=== PATIENT | female | born 1995 | race Caucasian/White ===

== ENCOUNTER 2021-11-03 10:56 | Emergency (ER) | payer OTHER, SELFPAY ==
[2021-11-03 11:06] VITALS: BP 141/96; PULSE 93; RESP 14; TEMP 37; O2SAT 100
--- NOTE | 2021-11-03 11:26 | ED.SKABFB ---
HPI - Skin/Abscess/Foreign Bdy General Chief complaint: Skin/Abscess/Foreign Body Stated complaint: Rash Time Seen by Provider: 11/03/21 11:00 Source: patient Mode of arrival: ambulatory Limitations: no limitations History of Present Illness HPI narrative: 26-year-old female presents to [facility] with complaints of rash to her chest, abdomen and moving down to her groin region for the past 3 days. Patient reports that she did have cold symptoms approximate 1 week ago. Patient denies new medications, new soaps or new detergents. Patient denies fever, bites, chills, nausea, vomiting or diarrhea. Patient denies itching MD complaint: rash Onset (ago): day(s) (3) Location: chest Relieving factors: none Exacerbating factors: none Context: none Treatments prior to arrival: none Related Data Home Medications Medication Instructions Recorded Confirmed atenolol 50 mg PO EVERY OTHER DAY 11/03/21 11/03/21 insulin glargine [Lantus U-100 24 unit SUBCUT DAILY 11/03/21 11/03/21 Insulin] insulin lispro protamin-lispro 20 unit SUBCUT TID 11/03/21 11/03/21 [Humalog Mix 50-50 KwikPen] Allergies Allergy/AdvReac Type Severity Reaction Status Date / Time cefprozil Allergy Unknown Rash Verified 11/03/21 11:17 Review of Systems Constitutional: Constitutional: Denies chills, Denies fever(s) and Denies weakness ENT: Denies dizziness Cardiovascular: Cardiovascular: Denies chest pain, Denies rapid heart rate, Denies radiating jaw, neck or arm pain and Denies slow heart rate Respiratory: Respiratory: Denies cough Gastrointestinal: Gastrointestinal: Denies abdominal pain, Denies constipation, Denies diarrhea, Denies nausea and Denies vomiting Integumentary/Breasts: Skin/Breast: Reports rash PMFSH Past Medical History Medical History (Updated 11/03/21 @ 11:36 by Olivia Arroyo APRN) Diabetes Hernia Family History Family History (Updated 11/03/21 @ 11:29 by Olivia Arroyo APRN) Mother Lupus Social History Social History (Updated 11/03/21 @ 11:29 by Olivia Arroyo APRN) Tobacco type: e-cigarettes/vaping Comments At time of signature, I agree with nursing past medical, surgical, social and family history. There is no relevant family history pertinent to the presenting complaint. Exam Const: General: healthy appearing and no acute distress Orientation/consciousness: patient oriented x3 Neck: Neck: normal visual inspection Resp: Effort & Inspection: normal respiratory effort Auscultation: clear to auscultation bilaterally Cardio: Rate: regular rate Rhythm: regular rhythm Skin: General skin exam: normal color Wounds: no wounds Other: Sporadic flesh-colored scaly papules noted to chest, abdomen and moving to groin region. Rash appears to be pityriasis rosea. There is no bruising, bleeding, open wounds or signs of infection noted Neuro: General: patient oriented x3 and moves all extremities Psych: Appearance: grossly normal Mental Status: mental status grossly normal Affect: normal affect Attitude: cooperative Thought content: Yes Normal thought content present Course Vital Signs Vital signs: Vital Signs Temperature 37.0 C 11/03/21 11:06 Pulse Rate 93 11/03/21 11:06 Respiratory Rate 14 11/03/21 11:06 Blood Pressure 141/96 H 11/03/21 11:06 Pulse Oximetry 100 11/03/21 11:06 Temperature 37.0 C 11/03/21 11:06 Pulse Rate 93 11/03/21 11:06 Respiratory Rate 14 11/03/21 11:06 Blood Pressure 141/96 H 11/03/21 11:06 Pulse Oximetry 100 11/03/21 11:06 MDM - Skin/Abscess/Foreign Bdy MDM Narrative Medical decision making narrative: Discussed pityriasis rosea with patient. She understands that rash is self-limiting . Pt agrees to take Benadryl PRN itching. Pt agrees to f/u with PCP if rash does not resolve. Patient agrees to proceed to ER if symptoms Differential Diagnosis Differential diagnosis: Likely abscess of skin or subcutaneous tissue, viral exanthem and urt
== END 2021-11-03 11:40 | disposition home or self-care (01) ==
PROVIDERS: Emergency Provider Nurse Practitioner Family
DX: L42 Pityriasis rosea (principal); E11.9 Type 2 diabetes mellitus without complications; F17.290 Nicotine dependence, other tobacco product, uncomplicated
CPT/HCPCS: 99211; G0463

== ENCOUNTER 2022-07-30 08:09 | Emergency (ER) | payer OTHER, SELFPAY ==
[2022-07-30 08:18] VITALS: BP 144/92; PULSE 90; RESP 20; TEMP 36.9; O2SAT 99
--- NOTE | 2022-07-30 08:25 | ED.GENADULT ---
HPI - General Adult General Chief complaint: Recheck/Abnormal Lab/Rx Stated complaint: blood sugar Time Seen by Provider: 07/30/22 08:25 Source: patient Mode of arrival: ambulatory Limitations: no limitations History of Present Illness HPI narrative: 27y/o female with history of Diabetes presented for concern for UTI due to spiking blood sugar in the night. Denies urinary symptoms, abdominal pain, polyuria, polydipsia, n/v/d/f/c. States the last time her blood sugar levels spiked it was due to UTI, and was asymptomatic at that time. Wears insulin pump and says glucometer reading this morning 230. States pump has delivered multiple doses to maintain glucose. Scheduled with search manager in 3 weeks. Also reports itchy rash behind ears and in scalp for 4 weeks. She went to the lice clinic in [facility] for evaluation and has changed shampoo. Denies draining lesions. Related Data Home Medications Medication Instructions Recorded Confirmed insulin glargine 100 unit/mL 24 unit subcut DAILY 11/03/21 07/30/22 subcutaneous solution (Lantus U-100 Insulin) insulin lispro protamine-lispro 20 unit subcut TID 11/03/21 07/30/22 100 unit/mL (50-50) subcutaneous pen (Humalog Mix 50-50 KwikPen) Allergies Allergy/AdvReac Type Severity Reaction Status Date / Time cefprozil Allergy Unknown Rash Verified 07/30/22 08:21 Review of Systems Review of Systems: CONSTITUTIONAL: Denies body aches, fever, chills, or sweats. CARDIOVASCULAR: Denies chest pain, palpitations, or edema. RESPIRATORY: Denies cough or dyspnea. GASTROINTESTINAL: Denies abdominal pain, nausea, vomiting, or diarrhea. GENITOURINARY: Denies dysuria or hematuria. SKIN: reports rash, itching, or wounds. MUSCULOSKELETAL: Denies back pain, joint pain, or myalgia. NEUROLOGIC: Denies headache, numbness, tingling, or weakness. All systems reviewed & are unremarkable except as noted in HPI and below PMFSH Past Medical History Medical History Diabetes Hernia Family History Family History Mother Lupus Social History Social History Tobacco type: e-cigarettes/vaping Comments At time of signature, I have reviewed and agree with nursing past medical, surgical, social and family history unless otherwise noted. Please see nursing chart for further information. There is no relevant family history pertinent to the presenting complaint Exam Narrative: GENERAL: Well-appearing EYES: EOMI. No redness or drainage. Conjunctivae normal. ENT: Mucous membranes pink and moist. CHEST: Clear to auscultation. HEART: Regular rate and rhythm. SKIN: Warm, dry, no rash noted behind ears or scalp, no apparent cause for itching. Capillary refill normal. Normal skin turgor. NEURO: Alert and oriented x3. PSYCH: Normal affect. Course Course Emergency Course: Patient is aware of diagnosis, understands and agrees to treatment plan. Anticipatory guidance given. Patient agrees to follow-up as directed and is aware of reasons to seek care at the emergency department. Portions of this record may have been created with voice recognition software Level of Care: Express Care Visit Vital Signs Vital signs: Vital Signs Temperature 98.4 F 07/30/22 08:18 Pulse Rate 90 07/30/22 08:18 Respiratory Rate 20 07/30/22 08:18 Blood Pressure 144/92 H 07/30/22 08:18 Pulse Oximetry 99 07/30/22 08:18 Oxygen Delivery Room Air 07/30/22 08:18 Temperature 98.4 F 07/30/22 08:18 Pulse Rate 90 07/30/22 08:18 Respiratory Rate 20 07/30/22 08:18 Blood Pressure 144/92 H 07/30/22 08:18 Pulse Oximetry 99 07/30/22 08:18 Oxygen Delivery Room Air 07/30/22 08:18 Medical Decision Making MDM Narrative Medical decision making narrative: Results of urine reviewed with pt. Will send for culture.
== END 2022-07-30 08:45 | disposition home or self-care (01) ==
PROVIDERS: Emergency Provider Nurse Practitioner Family
DX: E11.65 Type 2 diabetes mellitus with hyperglycemia (principal); Z79.4 Long term (current) use of insulin; Z96.41 Presence of insulin pump (external) (internal); F17.290 Nicotine dependence, other tobacco product, uncomplicated
CPT/HCPCS: 81003; 87086; 87147; 87181; 87186; 99213; G0463

== ENCOUNTER 2022-09-16 11:06 | Emergency (ER) | payer OTHER, SELFPAY ==
--- NOTE | 2022-09-16 11:09 | ED.FEMALEGU ---
HPI - Female Genitourinary General Chief complaint: Urogenital-Female Stated complaint: poss uti Time Seen by Provider: 09/16/22 11:09 Source: patient and RN notes reviewed History of Present Illness HPI Narrative: Patient is a 27-year-old female who presents to urgent care with complaints of possible UTI due to elevated blood sugar last night. Patient states that her blood sugars have have been normal today and running approximately 90. Patient states that the last time she had elevated blood sugars and treat her UTI and worse evening. Patient denies any nausea, vomiting, urinary frequency, urgency or pain with urination. Denies any recent fevers. No other acute complaints. No acute distress noted. Patient aware of the plan of care. Some parts of this dictation were generated by voice recognition software and may contain typographical and/or grammatical inaccuracies. Related Data Home Medications Medication Instructions Recorded Confirmed insulin glargine 100 unit/mL 24 unit subcut DAILY 11/03/21 09/16/22 subcutaneous solution (Lantus U-100 Insulin) insulin lispro protamine-lispro 20 unit subcut TID 11/03/21 09/16/22 100 unit/mL (50-50) subcutaneous pen (Humalog Mix 50-50 KwikPen) elderberry fruit 200 mg capsule mg PO 09/16/22 magnesium carbonate 09/16/22 [id number] 1 mg tablet PO 09/16/22 tablet Allergies Allergy/AdvReac Type Severity Reaction Status Date / Time cefprozil Allergy Unknown Rash Verified 09/16/22 11:16 Review of Systems Review of Systems: CONSTITUTIONAL: Denies fever, chills, or sweats. EYES: Denies visual changes, redness, or discharge. ENT: Denies rhinorrhea, congestion, sore throat, or otalgia. CARDIOVASCULAR: Denies chest pain, palpitations, or edema. RESPIRATORY: Denies cough or dyspnea. GASTROINTESTINAL: Denies abdominal pain, nausea, vomiting, or diarrhea. GENITOURINARY: denies urinary urgency, frequency, hematuria SKIN: Denies rash or itching. MUSCULOSKELETAL: Denies back pain, joint pain, or myalgia. NEUROLOGIC: Denies headache, numbness, or weakness. All other systems reviewed are negative, except as documented in HPI. [facility] Past Medical History Medical History Diabetes Hernia Family History Family History Mother Lupus Social History Social History Tobacco type: e-cigarettes/vaping Comments At the time of my signature, I reviewed and agree with the nursing past medical, surgical, social, and family history. There is no relevant family history pertinent to the patient complaint. Exam Narrative: GENERAL: This is a well-nourished, well-developed patient, in no apparent distress. HEAD: normocephalic, atraumatic. EYES: PERRL. Sclera clear/white. Vision is grossly intact. EARS: External ears normal NOSE: External nose normal with no obvious nasal discharge, nares without redness, no rhinorrhea. THROAT: Mucous membranes moist NECK: Neck supple CARDIOVASCULAR: Regular rate and rhythm without murmurs, gallops, or rubs. RESPIRATORY: Clear to auscultation. Breath sounds equal bilaterally. No wheezes, rales, or rhonchi. GASTROINTESTINAL: Abdomen soft, non-tender, nondistended. SKIN: warm, intact with no suspicious lesions or rash, good texture and turgor. NEURO: awake, alert, and oriented to person, place and time. There were no obvious focal neurologic abnormalities. EXTREMITIES: No clubbing, cyanosis, or edema. BACK: negative bilateral CVA tenderness Course Course Level of Care: Express Care Visit Vital Signs Vital signs: Vital Signs Temperature 98.1 F 09/16/22 11:11 Pulse Rate 92 09/16/22 11:11 Respiratory Rate 16 09/16/22 11:11 Blood Pressure 144/82 H 09/16/22 11:11 Pulse Oximetry 100 09/16/22 11:11 Oxygen Delivery Room Air 09/16/22
[2022-09-16 11:11] VITALS: BP 144/82; PULSE 92; RESP 16; TEMP 36.7; O2SAT 100
== END 2022-09-16 11:53 | disposition home or self-care (01) ==
PROVIDERS: Emergency Provider Nurse Practitioner Family; PCP Internal Medicine
DX: E11.65 Type 2 diabetes mellitus with hyperglycemia (principal); Z79.4 Long term (current) use of insulin; Z87.440 Personal history of urinary (tract) infections
CPT/HCPCS: 81003; 87086; 99213; G0463

== ENCOUNTER 2024-03-21 09:55 | Emergency (ER) | payer OTHER, SELFPAY ==
[2024-03-21 10:04] VITALS: BP 138/94; PULSE 88; RESP 16; TEMP 37; O2SAT 99
--- NOTE | 2024-03-21 10:11 | ED.GENADULT ---
HPI - General Adult General Chief complaint: Upper Respiratory Infection Stated complaint: Sore Throat/Body Ache Source: patient, RN notes reviewed and old records reviewed Mode of arrival: ambulatory Limitations: no limitations History of Present Illness HPI narrative: 28-year-old female presents to [facility] with complaint of sore throat, fever, myalgia, sinus congestion this started 6 days ago. Patient taking [id number] medications with no relief. Patient states daughter had similar symptoms and was tested for strep/ COVID /influenza that were all negative. Related Data Home Medications Medication Instructions Recorded Confirmed insulin lispro protamine-lispro 20 unit subcut TID 11/03/21 09/16/22 100 unit/mL (50-50) subcutaneous pen (Humalog Mix 50-50 KwikPen) magnesium carbonate 09/16/22 [id number] 1 mg tablet PO 09/16/22 tablet Insulin Pump 03/21/24 Allergies Allergy/AdvReac Type Severity Reaction Status Date / Time cefprozil Allergy Unknown Rash Verified 03/21/24 10:00 Review of Systems Constitutional: Constitutional: Reports no additional constitutional complaints, Reports body ache(s), Denies chills, Denies fatigue, Reports fever(s) and Denies headache(s) Eyes: Eyes: Reports no additional eye complaints and Denies blurry vision ENT: Reports system reviewed and no additional complaints, except as documented, Denies vertigo, Denies dizziness, Denies ear discharge, Denies otalgia, Denies facial pain, Denies headache(s), Reports nasal congestion, Denies nasal discharge, Denies sinus pain, Reports sinus pressure and Reports sore throat Cardiovascular: Cardiovascular: Reports no additional cardiovascular complaints, Denies chest pain, Denies chest pain at rest, Denies rapid heart rate and Denies dyspnea Respiratory: Respiratory: Reports no additional respiratory complaints, Denies chest congestion, Denies cough, Denies pain on inspiration, Denies pain with cough and Denies dyspnea Gastrointestinal: Gastrointestinal: Denies abdominal pain, Denies diarrhea, Denies nausea and Denies vomiting Integumentary/Breasts: Skin/Breast: Denies rash Neurologic: Reports system reviewed and no additional complaints, except as documented, Denies vertigo, Denies dizziness and Denies headache(s) Endocrine: Endocrine: Denies fatigue PMFSH Past Medical History Medical History Diabetes Hernia Family History Family History Mother Lupus Social History Social History Tobacco type: e-cigarettes/vaping Comments At the time of my signature, I reviewed and agree with the nursing past medical, surgical, social, and family history. There is no relevant family history pertinent to the patient complaint. Exam Const: General: cooperative, healthy appearing, no acute distress and well nourished Nutritional Appearance: well nourished Orientation/consciousness: patient oriented x3 Limitations: no limitations HENMT: Head: normal to inspection and normocephalic Ears: external ears normal, TM's normal bilaterally, EAC's normal and mastoids normal Face/Nose/Sinus: Normal nasal mucous membranes and turbinates present, normal facial exam and sinuses nontender Face and sinus: normal facial exam Mouth: Yes Normal oral and palatal mucosa present, Yes oropharynx normal, Yes moist mucous membranes and Yes tongue abnormal discolored Throat: tonsils normal, uvula midline, normal tonsils, no peritonsillar masses, posterior oropharynx abnormal erythema, postnasal drainage, tonsils absent and no uvular edema Eyes: General: appearance normal, both eyes and all related structures Sclera: sclerae normal Pupils: Equal, round and reactive pupils present Resp: Effort & Inspection: normal respiratory effort, able to speak in complete sentences, no a
== END 2024-03-21 10:42 | disposition home or self-care (01) ==
PROVIDERS: Emergency Provider Registered Nurse
DX: J02.0 Streptococcal pharyngitis (principal); Z20.822 Contact with and (suspected) exposure to COVID-19; F17.290 Nicotine dependence, other tobacco product, uncomplicated; E11.9 Type 2 diabetes mellitus without complications; Z79.4 Long term (current) use of insulin
CPT/HCPCS: 87426; 87804; 87880; 99213; G0463